=== PATIENT | male | born 1975 | race Caucasian/White ===

== ENCOUNTER 2017-04-24 11:22 | Emergency (ER) | payer OTHER ==
[~2017-04-24] VITALS: Ht 185.4 cm; Wt 111.1 kg
[~2017-04-24 11:22] MED LIST: ALBU90OI; ALBU90OI INH; CEPH500 PO; CIPR500 PO; CRUTCH3 USE; CYCL10 PO; DIAZ5 PO; DOXY100 PO; FAMO20 PO; GUAPSEER PO; HYDACE5 PO; HYDGUAL120 PO; IBUP200 PO; IBUP600 PO; LANS1COM10 PO; LORA1 PO; METR500 PO; ONDA8 PO; ONDA8ODT MM; OXYACE5T PO; PROM25 PO; Prilosec20 MG PO; RXALBOI INH; RXCODGUASY PO; RXHYDACE PO; SUCR1 PO; SULTRIDS PO
[2017-04-24 13:02] LABS: Influenza A Negative (NEGATIVE); Influenza B Negative (NEGATIVE)
[2017-04-24] MEDS ORDERED: BENZ100A PO (13:32)
[2017-04-24] MEDS ORDERED: Mucinex600 MG PO (13:32)
[2017-04-24] MEDS ORDERED: ALBU90OI INH (13:32)
[2017-04-24] MEDS ORDERED: Pseudoephedrine30 MG PO (13:32)
[2018-01-04] MEDS ORDERED: Ultram50 MG PO (08:46)
[2018-01-04] MEDS ORDERED: Voltaren100 GM TOP (08:46)
== END 2017-04-24 13:24 | disposition home or self-care (01) ==
LOC: ER 11:22
PROVIDERS: Physician Assistant
DX: J40 Bronchitis, not specified as acute or chronic (principal); B34.9 Viral infection, unspecified; F17.200 Nicotine dependence, unspecified, uncomplicated; Z79.899 Other long term (current) drug therapy
CPT/HCPCS: 87804; 99283

== ENCOUNTER 2018-10-31 08:33 | Emergency (ER) | payer OTHER ==
[~2018-10-31] VITALS: Ht 185.4 cm; Wt 108.9 kg
[~2018-10-31 08:33] MED LIST changes: +BENZ100A PO; +Mucinex600 MG PO; +Pseudoephedrine30 MG PO; +Ultram50 MG PO; +Voltaren100 GM TOP
[2018-10-31] MEDS ORDERED: NAPR550 PO (10:21)
== END 2018-10-31 10:34 | disposition home or self-care (01) ==
LOC: ER 08:33
DX: S00.83XA Contusion of other part of head, initial encounter (principal); Y04.8XXA Assault by other bodily force, initial encounter; F17.210 Nicotine dependence, cigarettes, uncomplicated
CPT/HCPCS: 70486; 99283-25

== ENCOUNTER 2019-12-19 08:11 | Emergency (ER) | payer OTHER ==
[~2019-12-19] VITALS: Ht 185.4 cm; Wt 115.7 kg
[~2019-12-19 08:11] MED LIST changes: +NAPR550 PO
== END 2019-12-19 10:40 | disposition home or self-care (01) ==
LOC: ER 08:11
DX: S63.615A Unspecified sprain of left ring finger, initial encounter (principal); F17.200 Nicotine dependence, unspecified, uncomplicated; X50.1XXA Overexertion from prolonged static or awkward postures, initial encounter
CPT/HCPCS: 29130; 73140; 99283-25

== ENCOUNTER 2020-02-29 08:07 | Emergency (ER) | payer OTHER ==
[~2020-02-29] VITALS: Ht 185.4 cm; Wt 113.4 kg
== END 2020-02-29 08:32 | disposition home or self-care (01) ==
LOC: ER 08:07
DX: M25.561 Pain in right knee (principal); F17.200 Nicotine dependence, unspecified, uncomplicated
CPT/HCPCS: 99283

== ENCOUNTER 2020-12-10 15:36 | Emergency (ER) | payer OTHER ==
[~2020-12-10] VITALS: Ht 185.4 cm; Wt 113.4 kg
[2020-12-10 16:56] LABS: BASOPHILS ABSOLUTE AUTO 0.05 K/mm3 (0.00-0.23); BASOPHILS PERCENT AUTO 1 % (0-2); EOSINOPHILS ABSOLUTE AUTO 0.25 K/mm3 (0.00-0.68); EOSINOPHILS PERCENT AUTO 3 % (0-6); Hematocrit 51.6 % (37.0-53.0); Hemoglobin 17.6 g/dL (13.5-17.5); IMMATURE GRAN ABSOLUTE AUTO 0.02 K/mm3 (0.00-0.10); IMMATURE GRAN PERCENT AUTO 0 % (0-1); LYMPHOCYTES ABSOLUTE AUTO 2.84 K/mm3 (0.84-5.20); LYMPHOCYTES PERCENT AUTO 30 % (21-46); MONOCYTES ABSOLUTE AUTO 0.67 K/mm3 (0.16-1.47); MONOCYTES PERCENT AUTO 7 % (4-13); Mean Corpuscular HGB 31.7 pg (26.0-34.0); Mean Corpuscular HGB Conc 34.1 g/dL (31.5-36.5); Mean Corpuscular Volume 93 fL (80-100); Mean Platelet Volume 10.3 fL (9.1-12.4); NEUTROPHILS PERCENT AUTO 59 % (41-73); Platelet Count 284 K/mm3 (150-400); RDW Coefficient Variation 13.2 % (11.7-14.2); RDW Standard Deviation 44.8 fL (35.1-46.3); Red Blood Cell Count 5.56 M/mm3 (4.30-5.90); White Blood Cell Count 9.33 K/mm3 (4.00-11.30)
[2020-12-10 17:25] LABS: Alanine Aminotransfer (ALT/SGP 22 U/L (12-78); Albumin, Blood 3.3 g/dL (3.4-5.0); Albumin/Globulin Ratio 0.6 (0.8-1.8); Alk Phos 72 U/L (50-136); Anion Gap 8 mmol/L (6-16); Aspartate Aminotrans (AST/SGOT 30 U/L (12-37); Bilirubin, Total 0.7 mg/dL (0.1-1.0); Blood Urea Nitrogen 9 mg/dL (8-24); Bun/Creatinine Ratio 10.4 (12.0-20.0); CO2, Blood 21 mmol/L (21-32); Chloride, Blood 108 mmol/L (98-108); Creatinine, Blood 0.86 mg/dL (0.60-1.20); Globulin, Blood 5.9 g/dL (2.2-4.0); Glomerular Filtration Rate >60 (60-); Glucose, Blood 97 mg/dL (70-99); Potassium, Blood 3.8 mmol/L (3.5-5.5); Sodium, Blood 137 mmol/L (136-145); Total Protein, Blood 9.2 g/dL (6.4-8.2)
[2020-12-10] MEDS ORDERED: TRIDERM28.4 GM TOP (18:10)
== END 2020-12-10 18:22 | disposition home or self-care (01) ==
LOC: ER 15:36
PROVIDERS: Physician Assistant
DX: M79.604 Pain in right leg (principal); M79.605 Pain in left leg; F17.200 Nicotine dependence, unspecified, uncomplicated
CPT/HCPCS: 36415; 80053; 85025; 99284

== ENCOUNTER 2021-01-08 13:26 | Emergency (ER) | payer OTHER ==
[~2021-01-08] VITALS: Ht 185.4 cm; Wt 111.1 kg
[~2021-01-08 13:26] MED LIST changes: +TRIDERM28.4 GM TOP
[2021-01-08 14:12] LABS: BASOPHILS ABSOLUTE AUTO 0.06 K/mm3 (0.00-0.23); BASOPHILS PERCENT AUTO 1 % (0-2); EOSINOPHILS ABSOLUTE AUTO 0.18 K/mm3 (0.00-0.68); EOSINOPHILS PERCENT AUTO 2 % (0-6); Hematocrit 48.2 % (37.0-53.0); Hemoglobin 16.5 g/dL (13.5-17.5); IMMATURE GRAN ABSOLUTE AUTO 0.04 K/mm3 (0.00-0.10); IMMATURE GRAN PERCENT AUTO 1 % (0-1); LYMPHOCYTES ABSOLUTE AUTO 2.24 K/mm3 (0.84-5.20); LYMPHOCYTES PERCENT AUTO 29 % (21-46); MONOCYTES ABSOLUTE AUTO 0.55 K/mm3 (0.16-1.47); MONOCYTES PERCENT AUTO 7 % (4-13); Mean Corpuscular HGB 31.9 pg (26.0-34.0); Mean Corpuscular HGB Conc 34.2 g/dL (31.5-36.5); Mean Corpuscular Volume 93 fL (80-100); Mean Platelet Volume 10.7 fL (9.1-12.4); NEUTROPHILS ABSOLUTE AUTO 4.72 K/mm3 (1.96-9.15); NEUTROPHILS PERCENT AUTO 61 % (41-73); Platelet Count 258 K/mm3 (150-400); RDW Coefficient Variation 13.3 % (11.7-14.2); RDW Standard Deviation 45.8 fL (35.1-46.3); Red Blood Cell Count 5.17 M/mm3 (4.30-5.90); White Blood Cell Count 7.79 K/mm3 (4.00-11.30)
[2021-01-08 14:32] LABS: Alanine Aminotransfer (ALT/SGP 21 U/L (12-78); Albumin, Blood 3.1 g/dL (3.4-5.0); Albumin/Globulin Ratio 0.5 (0.8-1.8); Alk Phos 74 U/L (50-136); Anion Gap 5 mmol/L (6-16); Aspartate Aminotrans (AST/SGOT 29 U/L (12-37); Bilirubin, Total 0.5 mg/dL (0.1-1.0); Blood Urea Nitrogen 9 mg/dL (8-24); Bun/Creatinine Ratio 9.8 (12.0-20.0); CO2, Blood 25 mmol/L (21-32); Calcium, Blood 8.7 mg/dL (8.5-10.1); Chloride, Blood 108 mmol/L (98-108); Creatinine, Blood 0.92 mg/dL (0.60-1.20); Globulin, Blood 5.7 g/dL (2.2-4.0); Glomerular Filtration Rate >60 (60-); Glucose, Blood 87 mg/dL (70-99); Potassium, Blood 4.3 mmol/L (3.5-5.5); Sodium, Blood 138 mmol/L (136-145); Total Protein, Blood 8.8 g/dL (6.4-8.2)
== END 2021-01-08 15:29 | disposition home or self-care (01) ==
LOC: ER 13:26
PROVIDERS: Physician Assistant
DX: R20.2 Paresthesia of skin (principal); M79.672 Pain in left foot; M79.671 Pain in right foot; F17.200 Nicotine dependence, unspecified, uncomplicated
CPT/HCPCS: 36415; 80053; 83036; 85025; 99283

== ENCOUNTER 2021-05-09 08:07 | Emergency (ER) | payer OTHER ==
[~2021-05-09] VITALS: Ht 185.4 cm; Wt 113.4 kg
[2021-05-09 09:46] LABS: BASOPHILS ABSOLUTE AUTO 0.06 K/mm3 (0.00-0.23); BASOPHILS PERCENT AUTO 1 % (0-2); EOSINOPHILS PERCENT AUTO 1 % (0-6); Hematocrit 50.8 % (37.0-53.0); Hemoglobin 17.4 g/dL (13.5-17.5); IMMATURE GRAN ABSOLUTE AUTO 0.02 K/mm3 (0.00-0.10); IMMATURE GRAN PERCENT AUTO 0 % (0-1); LYMPHOCYTES ABSOLUTE AUTO 1.77 K/mm3 (0.84-5.20); LYMPHOCYTES PERCENT AUTO 23 % (21-46); MONOCYTES PERCENT AUTO 8 % (4-13); Mean Corpuscular HGB 32.2 pg (26.0-34.0); Mean Corpuscular HGB Conc 34.3 g/dL (31.5-36.5); Mean Corpuscular Volume 94 fL (80-100); Mean Platelet Volume 10.5 fL (9.1-12.4); NEUTROPHILS ABSOLUTE AUTO 5.14 K/mm3 (1.96-9.15); NEUTROPHILS PERCENT AUTO 67 % (41-73); Platelet Count 294 K/mm3 (150-400); RDW Coefficient Variation 12.1 % (11.7-14.2); RDW Standard Deviation 42.3 fL (35.1-46.3); White Blood Cell Count 7.69 K/mm3 (4.00-11.30)
[2021-05-09 10:08] LABS: Alanine Aminotransfer (ALT/SGP 26 U/L (12-78); Albumin, Blood 3.3 g/dL (3.4-5.0); Albumin/Globulin Ratio 0.6 (0.8-1.8); Alk Phos 50 U/L (50-136); Anion Gap 7 mmol/L (6-16); Aspartate Aminotrans (AST/SGOT 30 U/L (12-37); Bilirubin, Total 2.2 mg/dL (0.1-1.0); Blood Urea Nitrogen 8 mg/dL (8-24); Bun/Creatinine Ratio 9.1 (12.0-20.0); CO2, Blood 23 mmol/L (21-32); Calcium, Blood 9.3 mg/dL (8.5-10.1); Chloride, Blood 107 mmol/L (98-108); Creatinine, Blood 0.88 mg/dL (0.60-1.20); Globulin, Blood 5.4 g/dL (2.2-4.0); Glomerular Filtration Rate >60 (60-); Glucose, Blood 112 mg/dL (70-99); Potassium, Blood 4.3 mmol/L (3.5-5.5); Sodium, Blood 137 mmol/L (136-145); Total Protein, Blood 8.7 g/dL (6.4-8.2)
[2021-05-09 10:41] LABS: Source, Urine Clean Catch
[2021-05-09 10:45] LABS: Appearance, Urine Clear (Clear); Bilirubin, Urine Neg (Neg); Blood, Urine Neg (Neg); Color, Urine Yellow (P-Yellow); Glucose Qualitative, Urine Neg (Neg); Ketones, Urine Neg (Neg); Leukocyte Esterase, Urine Neg (Neg); Nitrite, Urine Neg (Neg); Protein, Urine Neg (Neg); Urobilinogen, Urine NORM (Normal)
[2021-05-09] MEDS ORDERED: CYCL10 PO (11:58)
[2021-05-09] MEDS ORDERED: LIDO700A20 TOP (11:58)
== END 2021-05-09 12:00 | disposition home or self-care (01) ==
LOC: ER 08:07
PROVIDERS: Physician Assistant
DX: R10.9 Unspecified abdominal pain (principal); F17.200 Nicotine dependence, unspecified, uncomplicated
CPT/HCPCS: 36415; 74176; 80053; 81003; 83690; 85025; 96374; 96375; 99284-25; J1885; J2405

== ENCOUNTER 2021-07-30 23:46 | Emergency (ER) | payer OTHER ==
[~2021-07-30] VITALS: Ht 185.4 cm; Wt 108.9 kg
[~2021-07-30 23:46] MED LIST changes: +LIDO700A20 TOP
[2021-07-31 00:25] LABS: BASOPHILS ABSOLUTE AUTO 0.08 K/mm3 (0.00-0.23); BASOPHILS PERCENT AUTO 1 % (0-2); EOSINOPHILS ABSOLUTE AUTO 0.18 K/mm3 (0.00-0.68); EOSINOPHILS PERCENT AUTO 2 % (0-6); Hematocrit 46.3 % (37.0-53.0); Hemoglobin 15.9 g/dL (13.5-17.5); IMMATURE GRAN ABSOLUTE AUTO 0.03 K/mm3 (0.00-0.10); IMMATURE GRAN PERCENT AUTO 0 % (0-1); LYMPHOCYTES ABSOLUTE AUTO 1.97 K/mm3 (0.84-5.20); LYMPHOCYTES PERCENT AUTO 18 % (21-46); MONOCYTES ABSOLUTE AUTO 0.71 K/mm3 (0.16-1.47); MONOCYTES PERCENT AUTO 6 % (4-13); Mean Corpuscular HGB 31.7 pg (26.0-34.0); Mean Corpuscular HGB Conc 34.3 g/dL (31.5-36.5); Mean Corpuscular Volume 92 fL (80-100); Mean Platelet Volume 10.6 fL (9.1-12.4); NEUTROPHILS ABSOLUTE AUTO 8.19 K/mm3 (1.96-9.15); NEUTROPHILS PERCENT AUTO 73 % (41-73); Platelet Count 292 K/mm3 (150-400); RDW Coefficient Variation 12.5 % (11.7-14.2); RDW Standard Deviation 42.7 fL (35.1-46.3); Red Blood Cell Count 5.02 M/mm3 (4.30-5.90); White Blood Cell Count 11.16 K/mm3 (4.00-11.30)
[2021-07-31 00:43] LABS: Albumin, Blood 3.4 g/dL (3.4-5.0); Albumin/Globulin Ratio 0.7 (0.8-1.8); Bun/Creatinine Ratio 14.5 (12.0-20.0); Calcium, Blood 8.9 mg/dL (8.5-10.1); Creatinine, Blood 0.96 mg/dL (0.60-1.20); Globulin, Blood 5.2 g/dL (2.2-4.0); Potassium, Blood 3.8 mmol/L (3.5-5.5); Total Protein, Blood 8.6 g/dL (6.4-8.2)
[2021-07-31 00:57] LABS: Source, Urine Clean Catch
[2021-07-31 00:59] LABS: Bilirubin, Urine Neg (Neg); Blood, Urine Neg (Neg); Glucose Qualitative, Urine Neg (Neg); Ketones, Urine Neg (Neg); Leukocyte Esterase, Urine Neg (Neg); Nitrite, Urine Neg (Neg); Protein, Urine 1+ (Neg); Urobilinogen, Urine NORM (Normal)
[2021-07-31 01:37] LABS: Appearance, Urine Clear (Clear); Color, Urine Yellow (P-Yellow)
== END 2021-07-31 05:01 | disposition home or self-care (01) ==
LOC: ER 23:46
PROVIDERS: Student in an Organized Health Care Education/Training Program
DX: R10.9 Unspecified abdominal pain (principal); F17.200 Nicotine dependence, unspecified, uncomplicated; Z79.899 Other long term (current) drug therapy
CPT/HCPCS: 36415; 74176; 80053; 83690; 85025; 96374; 96375; 99284-25; J1885; J2270

== ENCOUNTER → 2021-12-17 | Outpatient (CLI) | payer OTHER ==
[~2021-12-17] MED LIST changes: +BUDESONIDE-FO10.2 G3; +METO50ER PO; +Ventolin/Prove6.7 GM INH
== END | disposition home or self-care (01) ==
LOC: LAB 17:48 → LAB SHORT 17:48
DX: L98.9 Disorder of the skin and subcutaneous tissue, unspecified (principal)
CPT/HCPCS: 87070; 87205

== ENCOUNTER → 2022-03-31 | Outpatient (CLI) | payer OTHER | END | disposition home or self-care (01) | LOC: LAB 08:00 → LAB SHORT 08:00 → LAB FUT 03-27 17:00 | DX: L30.9 Dermatitis, unspecified (principal) | CPT/HCPCS: 81050 ==

== ENCOUNTER 2022-04-23 08:58 | Emergency (ER) | payer OTHER ==
[~2022-04-23] VITALS: Ht 185.4 cm; Wt 104.3 kg
[2022-04-23] MEDS ORDERED: Bactrim Ds Tab1 EACH PO (09:50)
== END 2022-04-23 09:50 | disposition home or self-care (01) ==
LOC: ER 08:58
DX: L02.415 Cutaneous abscess of right lower limb (principal); L02.416 Cutaneous abscess of left lower limb; F17.200 Nicotine dependence, unspecified, uncomplicated; J44.9 Chronic obstructive pulmonary disease, unspecified
CPT/HCPCS: 99282

== ENCOUNTER 2022-05-08 20:13 | Emergency (ER) | payer OTHER ==
[~2022-05-08] VITALS: Ht 185.4 cm; Wt 104.3 kg
[~2022-05-08 20:13] MED LIST changes: +Bactrim Ds Tab1 EACH PO
[2022-05-08 21:47] LABS: BASOPHILS ABSOLUTE AUTO 0.07 K/mm3 (0.00-0.23); BASOPHILS PERCENT AUTO 1 % (0-2); EOSINOPHILS ABSOLUTE AUTO 0.26 K/mm3 (0.00-0.68); EOSINOPHILS PERCENT AUTO 3 % (0-6); Hematocrit 47.8 % (37.0-53.0); Hemoglobin 16.4 g/dL (13.5-17.5); IMMATURE GRAN ABSOLUTE AUTO 0.02 K/mm3 (0.00-0.10); IMMATURE GRAN PERCENT AUTO 0 % (0-1); LYMPHOCYTES ABSOLUTE AUTO 1.69 K/mm3 (0.84-5.20); LYMPHOCYTES PERCENT AUTO 19 % (21-46); MONOCYTES ABSOLUTE AUTO 0.65 K/mm3 (0.16-1.47); MONOCYTES PERCENT AUTO 7 % (4-13); Mean Corpuscular HGB 32.4 pg (26.0-34.0); Mean Corpuscular HGB Conc 34.3 g/dL (31.5-36.5); Mean Corpuscular Volume 95 fL (80-100); Mean Platelet Volume 10.7 fL (9.1-12.4); NEUTROPHILS ABSOLUTE AUTO 6.09 K/mm3 (1.96-9.15); NEUTROPHILS PERCENT AUTO 69 % (41-73); Platelet Count 240 K/mm3 (150-400); RDW Standard Deviation 45.5 fL (35.1-46.3); Red Blood Cell Count 5.06 M/mm3 (4.30-5.90); White Blood Cell Count 8.78 K/mm3 (4.00-11.30)
[2022-05-08 22:11] LABS: Albumin, Blood 2.8 g/dL (3.4-5.0); Albumin/Globulin Ratio 0.6 (0.8-1.8); Bilirubin, Total 0.4 mg/dL (0.1-1.0); Bun/Creatinine Ratio 13.4 (12.0-20.0); Calcium, Blood 8.6 mg/dL (8.5-10.1); Creatinine, Blood 1.27 mg/dL (0.60-1.20); Globulin, Blood 4.4 g/dL (2.2-4.0); Potassium, Blood 4.1 mmol/L (3.5-5.5); Total Protein, Blood 7.2 g/dL (6.4-8.2)
[2022-05-08] MEDS ORDERED: IBUP800 PO (22:35)
== END 2022-05-08 22:50 | disposition home or self-care (01) ==
LOC: ER 20:13
PROVIDERS: Student in an Organized Health Care Education/Training Program
DX: M79.605 Pain in left leg (principal); M79.604 Pain in right leg; R60.0 Localized edema; J44.9 Chronic obstructive pulmonary disease, unspecified; F17.200 Nicotine dependence, unspecified, uncomplicated; Z79.899 Other long term (current) drug therapy
CPT/HCPCS: 36415; 80053; 85025; 96374; 99283-25; J3010

== ENCOUNTER 2022-07-13 10:00 | Emergency (ER) | payer OTHER ==
[~2022-07-13] VITALS: Ht 185.4 cm; Wt 97.5 kg
[~2022-07-13 10:00] MED LIST changes: +IBUP800 PO
[2022-07-13 10:13] VITALS: BP 155/85
[2022-07-13] MEDS ORDERED: ALBU90OI INH (10:16)
[2022-07-13] MEDS ORDERED: Robaxin750 MG PO (10:33)
[2022-07-13] MEDS ORDERED: IBUP800 PO (10:33)
== END 2022-07-13 10:52 | disposition home or self-care (01) ==
LOC: ER 10:00
DX: M54.41 Lumbago with sciatica, right side (principal); J44.9 Chronic obstructive pulmonary disease, unspecified; F17.210 Nicotine dependence, cigarettes, uncomplicated; Z79.899 Other long term (current) drug therapy
CPT/HCPCS: 96372; 99283-25; A9270; J1885

== ENCOUNTER 2022-11-16 00:41 | Emergency (ER) | payer OTHER ==
[~2022-11-16] VITALS: Ht 185.4 cm; Wt 99.8 kg
[~2022-11-16 00:41] MED LIST changes: +Robaxin750 MG PO
[2022-11-16 01:19] VITALS: BP 93/65
[2022-11-16] MEDS ORDERED: CEPHALEXIN500 MG PO (16:53)
== END 2022-11-16 02:31 | disposition left against medical advice (07) ==
LOC: ER 00:41
DX: Z53.21 Procedure and treatment not carried out due to patient leaving prior to being seen by health care provider (principal)
CPT/HCPCS: 73130

== ENCOUNTER 2022-11-16 15:07 | Emergency (ER) | payer OTHER ==
[~2022-11-16] VITALS: Ht 185.4 cm; Wt 104.3 kg
[2022-11-16 15:15] VITALS: BP 102/87
[2022-11-16] MEDS ORDERED: CEPHALEXIN500 MG PO (16:53)
== END 2022-11-16 17:14 | disposition home or self-care (01) ==
LOC: ER 15:07
DX: S62.616B Displaced fracture of proximal phalanx of right little finger, initial encounter for open fracture (principal); F17.210 Nicotine dependence, cigarettes, uncomplicated; J44.9 Chronic obstructive pulmonary disease, unspecified; W23.0XXA Caught, crushed, jammed, or pinched between moving objects, initial encounter; Z79.899 Other long term (current) drug therapy
CPT/HCPCS: 12001; 12002; 99283-25

== ENCOUNTER 2022-11-25 12:46 | Day surgery (SDC) | payer OTHER ==
[2022-11-25] VITALS (20 sets, daily range): BP systolic 114–157; BP diastolic 62–100
[~2022-11-25] VITALS: Ht 177.8 cm; Wt 97.4 kg
[~2022-11-25 12:46] MED LIST changes: +CEPHALEXIN500 MG PO
[2022-11-25] MEDS ORDERED: IBUP400 PO (13:29)
[2022-11-25] MEDS ORDERED: SYMBICORT 80-10.2 GM IH (13:37)
[2022-11-25] MEDS ORDERED: Ventolin5 MG/1 ML INH (13:37)
--- NOTE | 2022-11-25 14:39 | NUR ---
1438 TIME OUT COMPLETE FOR BLOCK BY DR ALLISON. 1438: TIME OUT COMPLETED 1440: 2MG VERSED IVP ADMINISTERED BY 1444: PROCEDURE START 1446: MEDICATION INJECTED 1450: PROCEDURE COMPLETED PT A/O, TOLERATED PROCEDURE WELL, VSS. PULSE OX ON THROUGHOUT PROCEDURE, DENIES PAIN AT THIS TIME.
--- NOTE | 2022-11-25 16:05 | NUR ---
11/25/22 Armida Eric PRIOR TO ARRIVING IN THE OR, PATIENT RECEIVED A RIGHT INTRACLAVICULAR BLOCK IN THE PREOP SETTING PERFORMED BY AT BEDSIDE.
--- NOTE | 2022-11-25 18:54 | NUR ---
DISCHARGE NOTE Discharge instructions reviewed with patient. Patient verbalizes understanding. Copy given to patient to take home. Dressing remains C/D/I, orthoglass splint in place, sling given to patient. Vital signs now stable. Pt educated on importance of smoking cessation follow up with PCP regarding abnormal EKG Pt assisted with dressing, belongings returned, pt assisted into wheelchair. Cap refill in R fingers 2 secs, pink, warm to touch. Pt discharged via wheelchair to private ride home with S/O.
== END 2022-11-25 22:59 | disposition home or self-care (01) ==
LOC: ORSCMMR 12:46 → ORD 14:00 → ORSCMMR 14:00
PROVIDERS: Orthopaedic Surgery
PROC: 0PST04Z Reposition Right Finger Phalanx with Internal Fixation Device, Open Approach (ICD-10-PCS; principal; 2022-11-25 14:00)
DX: S62.616A Displaced fracture of proximal phalanx of right little finger, initial encounter for closed fracture (principal); X58.XXXA Exposure to other specified factors, initial encounter; Y93.9 Activity, unspecified; S61.216A Laceration without foreign body of right little finger without damage to nail, initial encounter; J44.9 Chronic obstructive pulmonary disease, unspecified; F17.210 Nicotine dependence, cigarettes, uncomplicated; B19.20 Unspecified viral hepatitis C without hepatic coma; Z79.899 Other long term (current) drug therapy
CPT/HCPCS: 93005; 93010; J0690; J2250; J2704; J3010; J7120

== ENCOUNTER → 2022-12-19 | Outpatient (CLI) | payer OTHER ==
[~2022-12-19] MED LIST changes: +IBUP400 PO; +SYMBICORT 80-10.2 GM IH; +Ventolin5 MG/1 ML INH
[2022-12-19 16:51] LABS: BASOPHILS ABSOLUTE AUTO 0.11 K/mm3 (0.00-0.23); BASOPHILS PERCENT AUTO 1 % (0-2); EOSINOPHILS ABSOLUTE AUTO 0.44 K/mm3 (0.00-0.68); EOSINOPHILS PERCENT AUTO 5 % (0-6); Hematocrit 47.9 % (37.0-53.0); Hemoglobin 16.2 g/dL (13.5-17.5); IMMATURE GRAN ABSOLUTE AUTO 0.02 K/mm3 (0.00-0.10); IMMATURE GRAN PERCENT AUTO 0 % (0-1); LYMPHOCYTES ABSOLUTE AUTO 2.73 K/mm3 (0.84-5.20); LYMPHOCYTES PERCENT AUTO 32 % (21-46); MONOCYTES PERCENT AUTO 8 % (4-13); Mean Corpuscular HGB 31.5 pg (26.0-34.0); Mean Corpuscular HGB Conc 33.8 g/dL (31.5-36.5); Mean Corpuscular Volume 93 fL (80-100); Mean Platelet Volume 11.3 fL (9.1-12.4); NEUTROPHILS ABSOLUTE AUTO 4.55 K/mm3 (1.96-9.15); NEUTROPHILS PERCENT AUTO 53 % (41-73); Platelet Count 324 K/mm3 (150-400); RDW Coefficient Variation 12.9 % (11.7-14.2); RDW Standard Deviation 44.4 fL (35.1-46.3); Red Blood Cell Count 5.14 M/mm3 (4.30-5.90); White Blood Cell Count 8.55 K/mm3 (4.00-11.30)
[2022-12-19 17:39] LABS: Uric Acid, Blood 5.4 mg/dL (3.5-7.2)
[2022-12-19 18:59] LABS: Albumin, Blood 3.3 g/dL (3.4-5.0); Albumin/Globulin Ratio 0.6 (0.8-1.8); Bilirubin, Total 0.5 mg/dL (0.1-1.0); Bun/Creatinine Ratio 21.9 (12.0-20.0); Calcium, Blood 9.4 mg/dL (8.5-10.1); Creatinine, Blood 1.14 mg/dL (0.60-1.20); Globulin, Blood 5.8 g/dL (2.2-4.0); Potassium, Blood 4.5 mmol/L (3.5-5.5); Total Protein, Blood 9.1 g/dL (6.4-8.2)
== END ==
LOC: LAB 15:16 → LAB SHORT 15:16
PROVIDERS: Nurse Practitioner Family
DX: M10.9 Gout, unspecified (principal)
CPT/HCPCS: 80053; 84550; 85025; 87070; 87075; 87077; 87147; 87186; 87205

== ENCOUNTER 2023-01-21 20:32 | Emergency (ER) | payer OTHER ==
[~2023-01-21] VITALS: Ht 185.4 cm; Wt 108.9 kg
[2023-01-21 21:03] VITALS: BP 122/73
== END 2023-01-21 22:01 | disposition home or self-care (01) ==
LOC: ER 20:32
DX: L02.612 Cutaneous abscess of left foot (principal); R21 Rash and other nonspecific skin eruption; Z79.899 Other long term (current) drug therapy; J44.9 Chronic obstructive pulmonary disease, unspecified; F17.210 Nicotine dependence, cigarettes, uncomplicated
CPT/HCPCS: 99283

== ENCOUNTER 2023-01-25 22:49 | Emergency (ER) | payer OTHER ==
[~2023-01-25] VITALS: Ht 185.4 cm; Wt 104.3 kg
[2023-01-25 22:54] VITALS: BP 135/94
[2023-01-26] MEDS ORDERED: Prednisone20 MG PO (21:40)
[2023-01-26] MEDS ORDERED: Indomethacin50 MG PO (21:40)
== END 2023-01-25 23:28 | disposition home or self-care (01) ==
LOC: ER 22:49
DX: M25.571 Pain in right ankle and joints of right foot (principal); J44.9 Chronic obstructive pulmonary disease, unspecified; F17.210 Nicotine dependence, cigarettes, uncomplicated; Z79.899 Other long term (current) drug therapy
CPT/HCPCS: 96372; 99283-25; J1885

== ENCOUNTER 2023-01-26 21:05 | Emergency (ER) | payer OTHER ==
[~2023-01-26] VITALS: Ht 185.4 cm; Wt 105.7 kg
[2023-01-26 21:19] VITALS: BP 127/80
[2023-01-26] MEDS ORDERED: Prednisone20 MG PO (21:40)
[2023-01-26] MEDS ORDERED: Indomethacin50 MG PO (21:40)
== END 2023-01-26 21:50 | disposition home or self-care (01) ==
LOC: ER 21:05
DX: M10.9 Gout, unspecified (principal); F17.210 Nicotine dependence, cigarettes, uncomplicated; Z79.51 Long term (current) use of inhaled steroids; Z79.52 Long term (current) use of systemic steroids; Z79.899 Other long term (current) drug therapy
CPT/HCPCS: 99282; A9270; J7512

== ENCOUNTER → 2023-01-28 | Outpatient (CLI) | payer OTHER ==
[~2023-01-28] MED LIST changes: +Indomethacin50 MG PO; +Prednisone20 MG PO
[2023-01-28 13:17] LABS: BASOPHILS ABSOLUTE AUTO 0.02 K/mm3 (0.00-0.23); BASOPHILS PERCENT AUTO 0 % (0-2); EOSINOPHILS PERCENT AUTO 0 % (0-6); Hematocrit 42.8 % (37.0-53.0); Hemoglobin 14.5 g/dL (13.5-17.5); IMMATURE GRAN ABSOLUTE AUTO 0.05 K/mm3 (0.00-0.10); IMMATURE GRAN PERCENT AUTO 0 % (0-1); LYMPHOCYTES ABSOLUTE AUTO 0.97 K/mm3 (0.84-5.20); LYMPHOCYTES PERCENT AUTO 7 % (21-46); MONOCYTES ABSOLUTE AUTO 0.49 K/mm3 (0.16-1.47); MONOCYTES PERCENT AUTO 4 % (4-13); Mean Corpuscular HGB 31.7 pg (26.0-34.0); Mean Corpuscular HGB Conc 33.9 g/dL (31.5-36.5); Mean Corpuscular Volume 93 fL (80-100); Mean Platelet Volume 11.2 fL (9.1-12.4); NEUTROPHILS ABSOLUTE AUTO 12.42 K/mm3 (1.96-9.15); NEUTROPHILS PERCENT AUTO 89 % (41-73); Platelet Count 343 K/mm3 (150-400); RDW Coefficient Variation 13.3 % (11.7-14.2); RDW Standard Deviation 45.6 fL (35.1-46.3); Red Blood Cell Count 4.58 M/mm3 (4.30-5.90); White Blood Cell Count 13.95 K/mm3 (4.00-11.30)
[2023-01-28 13:27] LABS: Albumin, Blood 3.3 g/dL (3.4-5.0); Albumin/Globulin Ratio 0.6 (0.8-1.8); Bilirubin, Total 0.7 mg/dL (0.1-1.0); Bun/Creatinine Ratio 19.5 (12.0-20.0); Calcium, Blood 9.1 mg/dL (8.5-10.1); Creatinine, Blood 1.18 mg/dL (0.60-1.20); Globulin, Blood 5.1 g/dL (2.2-4.0); Potassium, Blood 4.3 mmol/L (3.5-5.5); Total Protein, Blood 8.4 g/dL (6.4-8.2); Uric Acid, Blood 5.2 mg/dL (3.5-7.2)
[2023-01-30 01:07] LABS: HIV AB/P24 AG SCREEN Non Reactive (Non Reactive)
[2023-02-02 08:08] LABS: HBSAG SCREEN Negative (Negative); HCV AB Reactive (Non Reactive); HEP A AB, IGM Negative (Negative); HEP B CORE AB, IGM Negative (Negative); HEPATITIS C QUANTITATION HCV Not Detected IU/mL (.)
== END | disposition home or self-care (01) ==
LOC: LAB 09:23 → LAB SHORT 09:23
PROVIDERS: Nurse Practitioner Family
DX: M10.9 Gout, unspecified (principal); L03.115 Cellulitis of right lower limb; B99.9 Unspecified infectious disease
CPT/HCPCS: 80053; 80074; 84550; 85025; 87389

== ENCOUNTER 2023-02-04 13:27 | Emergency (ER) | payer OTHER ==
[~2023-02-04] VITALS: Ht 185.4 cm; Wt 99.8 kg
[2023-02-04 14:08] LABS: BASOPHILS ABSOLUTE AUTO 0.05 K/mm3 (0.00-0.23); BASOPHILS PERCENT AUTO 1 % (0-2); EOSINOPHILS PERCENT AUTO 3 % (0-6); Hematocrit 41.2 % (37.0-53.0); Hemoglobin 13.7 g/dL (13.5-17.5); IMMATURE GRAN ABSOLUTE AUTO 0.03 K/mm3 (0.00-0.10); IMMATURE GRAN PERCENT AUTO 0 % (0-1); LYMPHOCYTES ABSOLUTE AUTO 2.08 K/mm3 (0.84-5.20); LYMPHOCYTES PERCENT AUTO 24 % (21-46); MONOCYTES ABSOLUTE AUTO 0.82 K/mm3 (0.16-1.47); MONOCYTES PERCENT AUTO 9 % (4-13); Mean Corpuscular HGB 31.4 pg (26.0-34.0); Mean Corpuscular HGB Conc 33.3 g/dL (31.5-36.5); Mean Corpuscular Volume 95 fL (80-100); Mean Platelet Volume 10.4 fL (9.1-12.4); NEUTROPHILS ABSOLUTE AUTO 5.57 K/mm3 (1.96-9.15); NEUTROPHILS PERCENT AUTO 63 % (41-73); Platelet Count 325 K/mm3 (150-400); RDW Coefficient Variation 13.2 % (11.7-14.2); RDW Standard Deviation 45.9 fL (35.1-46.3); Red Blood Cell Count 4.36 M/mm3 (4.30-5.90); White Blood Cell Count 8.85 K/mm3 (4.00-11.30)
[2023-02-04 14:25] LABS: Albumin/Globulin Ratio 0.6 (0.8-1.8); Bilirubin, Total 0.5 mg/dL (0.1-1.0); Bun/Creatinine Ratio 18.7 (12.0-20.0); Calcium, Blood 8.6 mg/dL (8.5-10.1); Creatinine, Blood 0.96 mg/dL (0.60-1.20); Globulin, Blood 4.8 g/dL (2.2-4.0); Potassium, Blood 3.8 mmol/L (3.5-5.5); Total Protein, Blood 7.8 g/dL (6.4-8.2)
[2023-02-04] MEDS ORDERED: DOXY100 PO (15:18)
[2023-02-04] MEDS ORDERED: CLIN150 PO (15:18)
[2023-02-04 15:20] VITALS: BP 118/78
== END 2023-02-04 16:40 | disposition left against medical advice (07) ==
LOC: ER 13:27
PROVIDERS: Physician Assistant
DX: S91.001A Unspecified open wound, right ankle, initial encounter (principal); Z53.29 Procedure and treatment not carried out because of patient's decision for other reasons; X58.XXXA Exposure to other specified factors, initial encounter
CPT/HCPCS: 73600; 80053; 85025; 99283-25

== ENCOUNTER 2023-02-06 12:26 | Emergency (ER) | payer OTHER ==
[~2023-02-06] VITALS: Ht 185.4 cm; Wt 101.2 kg
[~2023-02-06 12:26] MED LIST changes: +CLIN150 PO
[2023-02-06 13:13] LABS: Hematocrit 41.3 % (37.0-53.0); Hemoglobin 13.9 g/dL (13.5-17.5); Mean Corpuscular HGB 31.7 pg (26.0-34.0); Mean Corpuscular HGB Conc 33.7 g/dL (31.5-36.5); Mean Corpuscular Volume 94 fL (80-100); Mean Platelet Volume 10.4 fL (9.1-12.4); Platelet Count 289 K/mm3 (150-400); RDW Coefficient Variation 13.2 % (11.7-14.2); RDW Standard Deviation 46.5 fL (35.1-46.3); Red Blood Cell Count 4.38 M/mm3 (4.30-5.90); White Blood Cell Count 4.71 K/mm3 (4.00-11.30)
[2023-02-06 13:34] LABS: BAND PERCENT MAN 1 % (0-8); BASOPHILS ABSOLUTE MAN 0.04 K/mm3 (0.00-0.23); BASOPHILS PERCENT MAN 1 % (0-2); EOSINOPHILS ABSOLUTE MAN 0.04 K/mm3 (0.00-0.68); EOSINOPHILS PERCENT MAN 1 % (0-6); LYMPHOCYTES % ATYPICAL MANUAL 2 % (0-0); LYMPHOCYTES ABSOLUTE MAN 1.97 K/mm3 (0.84-5.20); LYMPHOCYTES PERCENT MAN 40 % (21-46); MONOCYTES ABSOLUTE MAN 0.42 K/mm3 (0.16-1.47); MONOCYTES PERCENT MAN 9 % (4-13); NEUTROPHILS ABSOLUTE MAN 2.21 K/mm3 (1.96-9.15); SEG NEUTROPHILS PERCENT MAN 46 % (41-73); TOTAL CELLS COUNTED 100
[2023-02-06 13:40] LABS: Albumin, Blood 3.1 g/dL (3.4-5.0); Albumin/Globulin Ratio 0.6 (0.8-1.8); Bilirubin, Total 0.7 mg/dL (0.1-1.0); Bun/Creatinine Ratio 12.3 (12.0-20.0); Calcium, Blood 8.8 mg/dL (8.5-10.1); Creatinine, Blood 1.06 mg/dL (0.60-1.20); Globulin, Blood 4.8 g/dL (2.2-4.0); Potassium, Blood 4.2 mmol/L (3.5-5.5); Total Protein, Blood 7.9 g/dL (6.4-8.2)
[2023-02-06 15:30] VITALS: BP 128/71
== END 2023-02-06 16:29 | disposition home or self-care (01) ==
LOC: ER 12:26
PROVIDERS: Student in an Organized Health Care Education/Training Program
DX: L03.115 Cellulitis of right lower limb (principal); F17.210 Nicotine dependence, cigarettes, uncomplicated
CPT/HCPCS: 80053; 85025; 99283

== ENCOUNTER 2023-02-13 08:42 | Day surgery (SDC) | payer OTHER | END 2023-02-13 23:00 | disposition home or self-care (01) | LOC: WOUND 08:42 | DX: S91.302D Unspecified open wound, left foot, subsequent encounter (principal); S91.001D Unspecified open wound, right ankle, subsequent encounter; S00-T88 Injury, poisoning and certain other consequences of external causes; L03.115 Cellulitis of right lower limb; X58.XXXD Exposure to other specified factors, subsequent encounter | CPT/HCPCS: 73630; A9270; G0463 ==

== ENCOUNTER 2023-02-20 03:58 | Day surgery (SDC) | payer OTHER | END 2023-02-20 22:41 | disposition home or self-care (01) | LOC: WOUND 03:58 | DX: L03.115 Cellulitis of right lower limb (principal); S81.801D Unspecified open wound, right lower leg, subsequent encounter; S00-T88 Injury, poisoning and certain other consequences of external causes; I73.9 Peripheral vascular disease, unspecified | CPT/HCPCS: A9270; G0463 ==

== ENCOUNTER 2023-02-27 03:07 | Day surgery (SDC) | payer OTHER | END 2023-02-27 23:42 | disposition home or self-care (01) | LOC: WOUND 03:07 | DX: S91.312D Laceration without foreign body, left foot, subsequent encounter (principal); S91.011D Laceration without foreign body, right ankle, subsequent encounter; L03.115 Cellulitis of right lower limb; S00-T88 Injury, poisoning and certain other consequences of external causes; S81.801D Unspecified open wound, right lower leg, subsequent encounter; I73.9 Peripheral vascular disease, unspecified | CPT/HCPCS: 93922; 99406; G0463 ==

== ENCOUNTER 2023-03-04 05:12 | Day surgery (SDC) | payer OTHER | END 2023-03-04 22:48 | disposition home or self-care (01) | LOC: WOUND 05:12 | DX: L03.115 Cellulitis of right lower limb (principal); S81.801D Unspecified open wound, right lower leg, subsequent encounter; S00-T88 Injury, poisoning and certain other consequences of external causes | CPT/HCPCS: G0463 ==

== ENCOUNTER 2023-03-13 03:06 | Day surgery (SDC) | payer OTHER | END 2023-03-13 22:54 | disposition home or self-care (01) | LOC: WOUND 03:06 | DX: S00-T88 Injury, poisoning and certain other consequences of external causes (principal); L97.522 Non-pressure chronic ulcer of other part of left foot with fat layer exposed; L03.115 Cellulitis of right lower limb; S81.801D Unspecified open wound, right lower leg, subsequent encounter; X58.XXXD Exposure to other specified factors, subsequent encounter | CPT/HCPCS: G0463 ==

== ENCOUNTER 2023-04-15 00:51 | Day surgery (SDC) | payer OTHER ==
[2023-04-15] MEDS ORDERED: Lidocaine HCl 4% Cream 5 GM ONE (11:03)
== END 2023-04-15 23:21 | disposition home or self-care (01) ==
LOC: WOUND 00:51
DX: L97.522 Non-pressure chronic ulcer of other part of left foot with fat layer exposed (principal); S91.001D Unspecified open wound, right ankle, subsequent encounter; L03.115 Cellulitis of right lower limb; S81.801D Unspecified open wound, right lower leg, subsequent encounter; S00-T88 Injury, poisoning and certain other consequences of external causes; X58.XXXD Exposure to other specified factors, subsequent encounter
CPT/HCPCS: A9270; G0463

== ENCOUNTER 2023-04-22 00:09 | Day surgery (SDC) | payer OTHER | END 2023-04-22 22:35 | disposition home or self-care (01) | LOC: WOUND 00:09 | DX: L97.312 Non-pressure chronic ulcer of right ankle with fat layer exposed (principal); L97.529 Non-pressure chronic ulcer of other part of left foot with unspecified severity; S81.801D Unspecified open wound, right lower leg, subsequent encounter; S00-T88 Injury, poisoning and certain other consequences of external causes; L03.115 Cellulitis of right lower limb | CPT/HCPCS: G0463 ==

== ENCOUNTER 2023-04-29 05:32 | Day surgery (SDC) | payer OTHER | END 2023-04-29 22:52 | disposition home or self-care (01) | LOC: WOUND 05:32 | DX: L97.522 Non-pressure chronic ulcer of other part of left foot with fat layer exposed (principal); L03.115 Cellulitis of right lower limb; S81.801D Unspecified open wound, right lower leg, subsequent encounter; S00-T88 Injury, poisoning and certain other consequences of external causes; X58.XXXD Exposure to other specified factors, subsequent encounter | CPT/HCPCS: G0463 ==

== ENCOUNTER 2023-05-06 01:50 | Day surgery (SDC) | payer OTHER | END 2023-05-06 22:49 | disposition home or self-care (01) | LOC: WOUND 01:50 | DX: L97.529 Non-pressure chronic ulcer of other part of left foot with unspecified severity (principal); S99.911D Unspecified injury of right ankle, subsequent encounter; S81.801D Unspecified open wound, right lower leg, subsequent encounter; L03.115 Cellulitis of right lower limb; X58.XXXD Exposure to other specified factors, subsequent encounter | CPT/HCPCS: G0463 ==

== ENCOUNTER 2023-06-17 02:26 | Day surgery (SDC) | payer OTHER ==
[~2023-06-17 02:26] MED LIST changes: +DELTASONE20 MG PO; +Norco 5-325 Ta1 EACH PO; +OXYC5 PO
[2023-06-17] MEDS ORDERED: Lidocaine HCl 4% Cream 5 GM ONE ×2 (14:13→14:33)
== END 2023-06-17 23:20 | disposition home or self-care (01) ==
LOC: WOUND 02:26
DX: L97.522 Non-pressure chronic ulcer of other part of left foot with fat layer exposed (principal); L97.314 Non-pressure chronic ulcer of right ankle with necrosis of bone; S80.822A Blister (nonthermal), left lower leg, initial encounter; L03.115 Cellulitis of right lower limb; S81.801D Unspecified open wound, right lower leg, subsequent encounter; S00-T88 Injury, poisoning and certain other consequences of external causes; X58.XXXD Exposure to other specified factors, subsequent encounter
CPT/HCPCS: A9270

== ENCOUNTER → 2023-06-24 | Outpatient (CLI) | payer OTHER | LOC: LAB 07:30 → LAB SHORT 07:30 | DX: L97.319 Non-pressure chronic ulcer of right ankle with unspecified severity (principal) | CPT/HCPCS: 88305 ==

== ENCOUNTER → 2023-07-01 | Outpatient (CLI) | payer OTHER | END | disposition home or self-care (01) | LOC: LAB 15:35 → LAB SHORT 15:35 | DX: L13.9 Bullous disorder, unspecified (principal) | CPT/HCPCS: 87070; 87205 ==

== ENCOUNTER 2023-07-02 04:37 | Day surgery (SDC) | payer OTHER ==
[2023-07-02] MEDS ORDERED: Lidocaine HCl 4% Cream 5 GM ONE (08:17)
== END 2023-07-02 22:50 | disposition home or self-care (01) ==
LOC: WOUND 04:37
DX: L97.312 Non-pressure chronic ulcer of right ankle with fat layer exposed (principal); S81.801D Unspecified open wound, right lower leg, subsequent encounter; S81.802D Unspecified open wound, left lower leg, subsequent encounter; S00-T88 Injury, poisoning and certain other consequences of external causes; X58.XXXD Exposure to other specified factors, subsequent encounter; L03.115 Cellulitis of right lower limb
CPT/HCPCS: A9270; G0463

== ENCOUNTER 2023-07-13 00:08 | Day surgery (SDC) | payer OTHER | END 2023-07-13 22:38 | disposition home or self-care (01) | LOC: WOUND 00:08 | DX: L03.115 Cellulitis of right lower limb (principal); S81.801D Unspecified open wound, right lower leg, subsequent encounter; S00-T88 Injury, poisoning and certain other consequences of external causes; Z86.14 Personal history of Methicillin resistant Staphylococcus aureus infection | CPT/HCPCS: A6213; G0463 ==

== ENCOUNTER 2023-07-20 04:06 | Day surgery (SDC) | payer OTHER | END 2023-07-20 22:45 | disposition home or self-care (01) | LOC: WOUND 04:06 | DX: L97.312 Non-pressure chronic ulcer of right ankle with fat layer exposed (principal); S81.801D Unspecified open wound, right lower leg, subsequent encounter; S00-T88 Injury, poisoning and certain other consequences of external causes; X58.XXXD Exposure to other specified factors, subsequent encounter; L03.115 Cellulitis of right lower limb ==

== ENCOUNTER 2023-09-03 03:08 | Day surgery (SDC) | payer OTHER ==
[~2023-09-03 03:08] MED LIST changes: +DAPS100 PO; +LEVFLO500 PO
[2023-09-03] MEDS ORDERED: Lidocaine HCl 4% Cream 5 GM ONE ×2 (08:55)
== END 2023-09-03 22:44 | disposition home or self-care (01) ==
LOC: WOUND 03:08
DX: L97.312 Non-pressure chronic ulcer of right ankle with fat layer exposed (principal); S81.802A Unspecified open wound, left lower leg, initial encounter; S81.801A Unspecified open wound, right lower leg, initial encounter; S91.103A Unspecified open wound of unspecified great toe without damage to nail, initial encounter; X58.XXXA Exposure to other specified factors, initial encounter; L03.115 Cellulitis of right lower limb
CPT/HCPCS: A6213; A9270

== ENCOUNTER 2023-09-24 02:37 | Day surgery (SDC) | payer OTHER | END 2023-09-24 22:48 | disposition home or self-care (01) | LOC: WOUND 02:37 | DX: L97.312 Non-pressure chronic ulcer of right ankle with fat layer exposed (principal); L97.322 Non-pressure chronic ulcer of left ankle with fat layer exposed; L97.512 Non-pressure chronic ulcer of other part of right foot with fat layer exposed; L97.522 Non-pressure chronic ulcer of other part of left foot with fat layer exposed; I73.9 Peripheral vascular disease, unspecified; F17.200 Nicotine dependence, unspecified, uncomplicated | CPT/HCPCS: 99406; G0463 ==

== ENCOUNTER 2023-10-06 01:53 | Day surgery (SDC) | payer OTHER | END 2023-10-06 23:12 | disposition home or self-care (01) | LOC: WOUND 01:53 | DX: L97.312 Non-pressure chronic ulcer of right ankle with fat layer exposed (principal); L97.522 Non-pressure chronic ulcer of other part of left foot with fat layer exposed; L97.512 Non-pressure chronic ulcer of other part of right foot with fat layer exposed; I73.9 Peripheral vascular disease, unspecified; F17.200 Nicotine dependence, unspecified, uncomplicated | CPT/HCPCS: G0463 ==

== ENCOUNTER 2023-10-27 03:48 | Day surgery (SDC) | payer OTHER | END 2023-10-27 23:13 | disposition home or self-care (01) | LOC: WOUND 03:48 | DX: L97.312 Non-pressure chronic ulcer of right ankle with fat layer exposed (principal); L97.522 Non-pressure chronic ulcer of other part of left foot with fat layer exposed; L97.512 Non-pressure chronic ulcer of other part of right foot with fat layer exposed; L97.322 Non-pressure chronic ulcer of left ankle with fat layer exposed; I73.9 Peripheral vascular disease, unspecified; L03.115 Cellulitis of right lower limb; Z72.0 Tobacco use | CPT/HCPCS: G0463 ==

== ENCOUNTER 2023-12-08 02:03 | Day surgery (SDC) | payer OTHER | END 2023-12-08 23:02 | disposition home or self-care (01) | LOC: WOUND 02:03 | DX: L97.512 Non-pressure chronic ulcer of other part of right foot with fat layer exposed (principal); L97.312 Non-pressure chronic ulcer of right ankle with fat layer exposed; L03.115 Cellulitis of right lower limb; Z72.0 Tobacco use; I73.9 Peripheral vascular disease, unspecified | CPT/HCPCS: G0463 ==

== ENCOUNTER 2023-12-15 03:18 | Day surgery (SDC) | payer OTHER ==
[2023-12-15] MEDS ORDERED: Lidocaine HCl 4% Cream 5 GM ONE (08:29)
== END 2023-12-15 23:00 ==
LOC: WOUND 03:18
DX: L97.312 Non-pressure chronic ulcer of right ankle with fat layer exposed (principal); L97.512 Non-pressure chronic ulcer of other part of right foot with fat layer exposed; L03.115 Cellulitis of right lower limb; I73.9 Peripheral vascular disease, unspecified; Z72.0 Tobacco use
CPT/HCPCS: A9270

== ENCOUNTER 2023-12-22 02:22 | Day surgery (SDC) | payer OTHER | END 2023-12-22 23:00 | disposition home or self-care (01) | LOC: WOUND 02:22 | DX: L97.312 Non-pressure chronic ulcer of right ankle with fat layer exposed (principal); L97.812 Non-pressure chronic ulcer of other part of right lower leg with fat layer exposed; L97.512 Non-pressure chronic ulcer of other part of right foot with fat layer exposed; L03.115 Cellulitis of right lower limb; Z72.0 Tobacco use | CPT/HCPCS: G0463 ==

== ENCOUNTER 2024-01-12 01:30 | Day surgery (SDC) | payer OTHER ==
[2024-01-12] MEDS ORDERED: Lidocaine HCl 4% Cream 5 GM ONE (08:52)
== END 2024-01-12 23:00 | disposition home or self-care (01) ==
LOC: WOUND 01:30
DX: L02.416 Cutaneous abscess of left lower limb (principal); I73.9 Peripheral vascular disease, unspecified; L97.512 Non-pressure chronic ulcer of other part of right foot with fat layer exposed; J44.9 Chronic obstructive pulmonary disease, unspecified; Z72.0 Tobacco use
CPT/HCPCS: 87070; 87077; 87186; 87205; A9270

== ENCOUNTER → 2024-05-26 | Outpatient (CLI) | payer OTHER | LOC: LAB 13:29 → LAB SHORT 13:29 | DX: L03.113 Cellulitis of right upper limb (principal) | CPT/HCPCS: 87070; 87075; 87077; 87147; 87186; 87205 ==

== ENCOUNTER → 2024-08-10 | Outpatient (CLI) | payer OTHER | LOC: LAB 17:23 → LAB SHORT 17:23 | DX: L97.919 Non-pressure chronic ulcer of unspecified part of right lower leg with unspecified severity (principal) | CPT/HCPCS: 87070; 87075; 87077; 87147; 87186; 87205 ==

== ENCOUNTER 2025-02-11 14:57 | Inpatient (IN) | payer OTHER ==
[~2025-02-11] VITALS: Ht 185.4 cm; Wt 110.4 kg
[2025-02-11] MEDS ORDERED: Ondansetron HCl 2 MG / ML 2ML Vial IV ONE (15:20)
[2025-02-11] MEDS ORDERED: Ketorolac Tromethamine 15mg Vial IV ONE (15:20)
[2025-02-11] MEDS ORDERED: FentaNYL Citrate 50 MCG/ML 2 ML Injection IV ONE ×2 (15:20→17:20)
[2025-02-11] MEDS ORDERED: NS 1,000 ML IV SCH (15:25)
[2025-02-11] MEDS ORDERED: Ipratropium/Albuterol SulF 2.5-0.5MG/3 ML Amp INH ONE (15:25)
[2025-02-11 15:37] LABS: Hematocrit 41.2 % (37.0-53.0); Hemoglobin 13.7 g/dL (13.5-17.5); Mean Corpuscular HGB Conc 33.3 g/dL (31.5-36.5); Mean Corpuscular Volume 94 fL (80-100); NRBC ABSOLUTE 0.00 K/mm3 (0.00-0.02); NRBC Auto 0.0 /100 WBC (0.0-0.2); Platelet Count 289 K/mm3 (150-400); RDW Coefficient Variation 12.5 % (11.7-14.2); RDW Standard Deviation 43.5 fL (35.1-46.3)
[2025-02-11] MEDS ORDERED: Ipratropium Bromide INH 0.02% 0.5 mg/2.5ML Vial INH ONE ×2 (15:45→17:35)
[2025-02-11 15:54] LABS: Alanine Aminotransfer (ALT/SGP 19.0 U/L (12-78); Albumin, Blood 3.2 g/dL (3.4-5.0); Albumin/Globulin Ratio 0.7 (0.8-1.8); Anion Gap 10.0 mmol/L (3-11); Aspartate Aminotrans (AST/SGOT 27.0 U/L (12-37); Bilirubin, Total 2.0 mg/dL (0.1-1.0); Blood Urea Nitrogen 17.0 mg/dL (8-24); CO2, Blood 23.0 mmol/L (21-32); Calcium, Blood 8.4 mg/dL (8.5-10.1); Chloride, Blood 103.0 mmol/L (98-108); Creatinine, Blood 1.17 mg/dL (0.60-1.20); Globulin, Blood 4.6 g/dL (2.2-4.0); Glucose, Blood 107.0 mg/dL (70-99); Magnesium, Blood 1.7 mg/dL (1.6-2.4); Phosphorus, Blood 1.4 mg/dL (2.5-4.9); Potassium, Blood 4.4 mmol/L (3.5-5.5); Sodium, Blood 132.0 mmol/L (136-145); Total Protein, Blood 7.8 g/dL (6.4-8.2)
[2025-02-11 16:10] LABS: BAND PERCENT MAN 4 % (0-8); BASOPHILS ABSOLUTE MAN 0.00 K/mm3 (0.00-0.23); BASOPHILS PERCENT MAN 0 % (0-2); EOSINOPHILS ABSOLUTE MAN 0.00 K/mm3 (0.00-0.68); EOSINOPHILS PERCENT MAN 0 % (0-6); LYMPHOCYTES ABSOLUTE MAN 1.09 K/mm3 (0.84-5.20); LYMPHOCYTES PERCENT MAN 4 % (21-46); MONOCYTES ABSOLUTE MAN 1.37 K/mm3 (0.16-1.47); MONOCYTES PERCENT MAN 5 % (4-13); NEUTROPHILS ABSOLUTE MAN 24.93 K/mm3 (1.96-9.15); SEG NEUTROPHILS PERCENT MAN 87 % (41-73)
[2025-02-11 16:40] LABS: pH Blood Venous 7.45 (7.34-7.37)
[2025-02-11] MEDS ORDERED: CefTRIAXone Sodium 2,000 MG in NS 100 ML IV ONE (17:15)
[2025-02-11] MEDS ORDERED: Naloxone HCl 0.4MG / ML 1ML Vial IV PRN (18:55)
[2025-02-11] MEDS ORDERED: Ondansetron HCl 2 MG / ML 2ML Vial IV PRN (18:55)
[2025-02-11] MEDS ORDERED: FentaNYL Citrate 50 MCG/ML 2 ML Injection IV PRN ×2 (19:00→22:25)
[2025-02-11] MEDS ORDERED: Ipratropium/Albuterol SulF 2.5-0.5MG/3 ML Amp INH SCH (19:00)
[2025-02-11] MEDS ORDERED: FLU VACC TS2025-26(6MOS UP)/PF 45 MCG/0.5 ML SYRINGE IM SCH (19:00)
[2025-02-11] MEDS ORDERED: Sodium Phosphate 20 MM in Dextrose 5% 500 ML IV STA (19:00)
[2025-02-11] MEDS ORDERED: Ketorolac Tromethamine 15mg Vial IV PRN (19:05)
[2025-02-11 20:02] LABS: pH Blood Venous 7.42 (7.34-7.37)
[2025-02-11] MEDS ORDERED: Lactobacil 2-S.Thermo-Bifido 1 1 Cap PO SCH (21:00)
[2025-02-11 21:05] VITALS: BP 104/64
[2025-02-11] MEDS ORDERED: IBUP800 PO (21:26)
[2025-02-11] MEDS ORDERED: ALBU90OI INH (21:27)
--- NOTE | 2025-02-11 21:30 | NUR ---
TRANSFER NOTE RECEIVED REPORT FROM ED RN AT 2025. PATIENT ARRIVED TO UNIT VIA [facility] AT 2105. PATIENT WALKED FROM [facility] TO BED, TOLERATED WELL. PATIENT A/O X 4, SPEAKING IN COMPLETE SENTENCES AND IS ABLE TO MAKE NEEDS KNOWN. AFLUTTER 60-70s, SBP 120s. DENIES CHEST PAIN OR PRESSURE. SATS >92% ON RA, DYSPNEA WITH EXERTION. PATIENT IS 1PA TO BATHROOM, EDUCATED ELECTRIC MOTOR MECHANIC LIGHT USE. PT REPORTS LAST BM THIS MORNING, NO DIFFICULTY WITH URINATION AT BASELINE. EXCORATIONS SCATTERED T/O UPPER/LOWER EXTREMITIES AND BUTTOCKS, PATIENT REPORTS ONGOING ISSUE WITH ITCHING/SCRATCHING OF THE AFFECTED AREAS. BACK PAIN IS CONSTANT, WORSE WITH MOVEMENT AND DEEP BREATHING. CURRENT RATING OF 8/10, TREATED PER EMAR. PATIENT RESTING COMFORTABLY IN ROOM. BED LOCKED IN LOWEST POSITION, CALL LIGHT WITHIN REACH.
[2025-02-11 23:37] LABS: Influenza A, PCR NEGATIVE (NEGATIVE); Influenza B, PCR NEGATIVE (NEGATIVE); Resp Syncytial Virus, PCR NEGATIVE (NEGATIVE); SARS-Cov-2 (COVID-19) PCR, MMC NEGATIVE (NEGATIVE)
[2025-02-12] VITALS (9 sets, daily range): BP systolic 89–115; BP diastolic 49–80
[2025-02-12 04:00] LABS: BASOPHILS ABSOLUTE AUTO 0.07 K/mm3 (0.00-0.23); BASOPHILS PERCENT AUTO 0 % (0-2); EOSINOPHILS ABSOLUTE AUTO 0.00 K/mm3 (0.00-0.68); EOSINOPHILS PERCENT AUTO 0 % (0-6); Hematocrit 37.9 % (37.0-53.0); Hemoglobin 12.8 g/dL (13.5-17.5); IMMATURE GRAN ABSOLUTE AUTO 0.62 K/mm3 (0.00-0.10); IMMATURE GRAN PERCENT AUTO 2 % (0-1); LYMPHOCYTES ABSOLUTE AUTO 1.10 K/mm3 (0.84-5.20); LYMPHOCYTES PERCENT AUTO 4 % (21-46); MONOCYTES ABSOLUTE AUTO 0.56 K/mm3 (0.16-1.47); MONOCYTES PERCENT AUTO 2 % (4-13); Mean Corpuscular HGB Conc 33.8 g/dL (31.5-36.5); Mean Corpuscular Volume 95 fL (80-100); NEUTROPHILS ABSOLUTE AUTO 27.42 K/mm3 (1.96-9.15); NEUTROPHILS PERCENT AUTO 92 % (41-73); NRBC ABSOLUTE 0.00 K/mm3 (0.00-0.02); NRBC Auto 0.0 /100 WBC (0.0-0.2); Platelet Count 254 K/mm3 (150-400); RDW Coefficient Variation 12.8 % (11.7-14.2); RDW Standard Deviation 44.7 fL (35.1-46.3)
[2025-02-12 04:35] LABS: Alanine Aminotransfer (ALT/SGP 15.0 U/L (12-78); Albumin, Blood 2.7 g/dL (3.4-5.0); Albumin/Globulin Ratio 0.6 (0.8-1.8); Anion Gap 11.0 mmol/L (3-11); Aspartate Aminotrans (AST/SGOT 15.0 U/L (12-37); Bilirubin, Total 1.0 mg/dL (0.1-1.0); Blood Urea Nitrogen 23.0 mg/dL (8-24); CO2, Blood 21.0 mmol/L (21-32); Calcium, Blood 8.3 mg/dL (8.5-10.1); Chloride, Blood 107.0 mmol/L (98-108); Creatinine, Blood 1.11 mg/dL (0.60-1.20); Globulin, Blood 4.5 g/dL (2.2-4.0); Glucose, Blood 160.0 mg/dL (70-99); Magnesium, Blood 2.2 mg/dL (1.6-2.4); Phosphorus, Blood 2.5 mg/dL (2.5-4.9); Potassium, Blood 4.5 mmol/L (3.5-5.5); Sodium, Blood 134.0 mmol/L (136-145); Total Protein, Blood 7.2 g/dL (6.4-8.2)
--- NOTE | 2025-02-12 05:37 | NUR ---
SHIFT SUMMARY SEE PREVIOUS NOTE. PATIENT REMAINS A/O X 4, USES CALL LIGHT APPROPRIATELY AND IS COOPERATIVE WITH CARE. AFLUTTER 50-60s, BP SOFT BUT STABLE. PATIENT DESATS TO MID 80s WHILE SLEEPING, MAINTAINING >92% ON 1-2L NC. PATIENT AMBULATES TO BATHROOM WITH 1PA, TOLERATES WELL. BACK PAIN IS WELL CONTROLLED WITH MEDS PER EMAR. DENIES SOB, DIZZINESS, OR LIGHTHEADNESS WHEN AMBULATING. PATIENT RESTING COMFORTABLY IN ROOM. BED LOCKED IN LOWEST POSITION, CALL LIGHT WITHIN REACH
[2025-02-12] MEDS ORDERED: Enoxaparin 40 MG/0.4 ML SYR SC SCH (09:00)
[2025-02-12] MEDS ORDERED: CefTRIAXone Sodium 2,000 MG in NS 100 ML IV SCH (09:00)
[2025-02-12] MEDS ORDERED: NS 1,000 ML IV SCH (09:25)
--- NOTE | 2025-02-12 16:56 | NUR ---
ASSUMED CARE 1530: PREVIOUS RN SHIFT ASSESSMENT REVIEWED AND AGREED WITH UNLESS OTHERWISE CHARTED ON THE INDIVIDUAL SYSTEM REASSESSMENT. PT C/O LEFT SIDED BACK PAIN AND WAS MEDICATED FOR THAT, SEE EMAR. PT TOLERATING IV FLUIDS WELL. PT HAS HAD GOOD URINARY OUTPUT SINCE THIS RN ASSUMED CARE.
[2025-02-12] MEDS ORDERED: CefTRIAXone Sodium 1,000 MG in NS 100 ML IV SCH (18:00)
[2025-02-13 03:47] VITALS: BP 112/73
[2025-02-13 04:09] LABS: BASOPHILS ABSOLUTE AUTO 0.03 K/mm3 (0.00-0.23); BASOPHILS PERCENT AUTO 0 % (0-2); EOSINOPHILS ABSOLUTE AUTO 0.03 K/mm3 (0.00-0.68); EOSINOPHILS PERCENT AUTO 0 % (0-6); Hematocrit 34.8 % (37.0-53.0); Hemoglobin 11.4 g/dL (13.5-17.5); IMMATURE GRAN ABSOLUTE AUTO 0.11 K/mm3 (0.00-0.10); IMMATURE GRAN PERCENT AUTO 1 % (0-1); LYMPHOCYTES ABSOLUTE AUTO 2.65 K/mm3 (0.84-5.20); LYMPHOCYTES PERCENT AUTO 14 % (21-46); MONOCYTES ABSOLUTE AUTO 0.66 K/mm3 (0.16-1.47); MONOCYTES PERCENT AUTO 3 % (4-13); Mean Corpuscular HGB Conc 32.8 g/dL (31.5-36.5); Mean Corpuscular Volume 95 fL (80-100); NEUTROPHILS ABSOLUTE AUTO 15.97 K/mm3 (1.96-9.15); NEUTROPHILS PERCENT AUTO 82 % (41-73); NRBC ABSOLUTE 0.00 K/mm3 (0.00-0.02); NRBC Auto 0.0 /100 WBC (0.0-0.2); Platelet Count 217 K/mm3 (150-400); RDW Coefficient Variation 13.1 % (11.7-14.2); RDW Standard Deviation 46.1 fL (35.1-46.3)
[2025-02-13 04:35] LABS: Alanine Aminotransfer (ALT/SGP 14.0 U/L (12-78); Albumin, Blood 2.4 g/dL (3.4-5.0); Albumin/Globulin Ratio 0.6 (0.8-1.8); Anion Gap 7.0 mmol/L (3-11); Aspartate Aminotrans (AST/SGOT 16.0 U/L (12-37); Bilirubin, Total 0.4 mg/dL (0.1-1.0); Blood Urea Nitrogen 27.0 mg/dL (8-24); CO2, Blood 23.0 mmol/L (21-32); Calcium, Blood 8.4 mg/dL (8.5-10.1); Chloride, Blood 112.0 mmol/L (98-108); Creatinine, Blood 0.99 mg/dL (0.60-1.20); Globulin, Blood 4.3 g/dL (2.2-4.0); Glucose, Blood 94.0 mg/dL (70-99); Potassium, Blood 3.9 mmol/L (3.5-5.5); Sodium, Blood 138.0 mmol/L (136-145); Total Protein, Blood 6.7 g/dL (6.4-8.2)
--- NOTE | 2025-02-13 05:31 | NUR ---
ASSUMED CARE OF PT AT 1900. PT AXOX4 AND ABLE TO USE CALL LIGHT APPROPRIATELY. PT REMAINS ON RA WITH 02>92%. PT HAS A NAGGING COUGH AND DOES GET SHORT OF BREATH AFTER HAVING A COUGHING FIT. ABLE TO TO AMBULATE TO THE BATHROOM WITH MINIMAL ASSISTANCE. PRN OXY AND TORODOL ADMINISTERED NEEDED FOR BACK PAIN. BED IN LOWEST POSITION AND CALL LIGHT WITHIN REACH.
[2025-02-13 08:33] VITALS: BP 101/70
[2025-02-13] MEDS ORDERED: CefTRIAXone Sodium 1,000 MG in NS 100 ML IV SCH (09:00)
[2025-02-13 16:48] VITALS: BP 112/75
--- NOTE | 2025-02-13 19:22 | NUR ---
PT STABLE THROUGHOUT SHIFT. PT ON ROOM AIR, AOX4, INDEPENDENT IN ROOM. TELE D/C'D. PT SALINE LOCKED EXCEPT IV ABX. PT TOLERATING IV ABX WELL. PAIN WELL CONTROLLED WITH TYLENOL AND TORADOL. PT PAIN LOCATED PRIMARY LEFT MID BACK.
[2025-02-13 19:43] VITALS: BP 121/87
[2025-02-14 04:12] VITALS: BP 116/77
--- NOTE | 2025-02-14 04:26 | NUR ---
SHIFT SUMMARY PT IS A&OX4 ABLE TO VERBALIZE NEEDS AND CALLS APPROPRIATELY . VSS ON RA O2 SATS >95%. REMAINS ON A CONTINUOUS PULSE OXIMETER. HE COMPLETED AN OVERNIGHT PULSE OX. HES A MEDICAL PATIENT AND NOT ON TELEMETRY. TOLERATES A HEART HEALTHY DIET. ABLE TO TAKE MEDS WHOLE IN WATER. DID C/O BACK PAIN MEDICATED WITH TYLENOL, TORADOL AND OXY WITH GOOD PAIN RELIEF. GETS UP AD GURJIT AND AMBULATES TO THE BATHROOM. HAD A BM YESTERDAY. BED IN LOWEST POSITION,, CALLS APPROPRIATELY AND IS ABLE TO ADVOCATE NEEDS EFFECTIVELY. REPORT TO ONCOMING NURSE.
[2025-02-14 08:44] LABS: BASOPHILS ABSOLUTE AUTO 0.04 K/mm3 (0.00-0.23); BASOPHILS PERCENT AUTO 0 % (0-2); EOSINOPHILS ABSOLUTE AUTO 0.18 K/mm3 (0.00-0.68); EOSINOPHILS PERCENT AUTO 2 % (0-6); Hematocrit 37.1 % (37.0-53.0); Hemoglobin 12.1 g/dL (13.5-17.5); IMMATURE GRAN ABSOLUTE AUTO 0.03 K/mm3 (0.00-0.10); IMMATURE GRAN PERCENT AUTO 0 % (0-1); LYMPHOCYTES ABSOLUTE AUTO 2.11 K/mm3 (0.84-5.20); LYMPHOCYTES PERCENT AUTO 23 % (21-46); MONOCYTES ABSOLUTE AUTO 0.34 K/mm3 (0.16-1.47); MONOCYTES PERCENT AUTO 4 % (4-13); Mean Corpuscular HGB Conc 32.6 g/dL (31.5-36.5); Mean Corpuscular Volume 97 fL (80-100); NEUTROPHILS ABSOLUTE AUTO 6.35 K/mm3 (1.96-9.15); NEUTROPHILS PERCENT AUTO 70 % (41-73); NRBC ABSOLUTE 0.00 K/mm3 (0.00-0.02); NRBC Auto 0.0 /100 WBC (0.0-0.2); Platelet Count 247 K/mm3 (150-400); RDW Coefficient Variation 13.2 % (11.7-14.2); RDW Standard Deviation 47.2 fL (35.1-46.3)
--- NOTE | 2025-02-14 10:06 | NUR ---
ASSUMED CARE THIS RN ASSUMED CARE OF PATIENT AT 0700 WITH PRECEPTOR THELMA WADDELL. PATIENT IS RESTING DURING BSSR BUT OPENS EYES AND GREEN X4 INDEPENDENTLY. HE RESPONDS TO NURSES APPROPRIATELY. HIS SPO2 IS 98% ON RA. BED IN LOWEST POSITION, CALL LIGHT IN REACH.
[2025-02-14] MEDS ORDERED: ACET325 PO (10:34)
[2025-02-14] MEDS ORDERED: FAMO20 PO (10:34)
[2025-02-14] MEDS ORDERED: PROBIOTIC1 EA13 PO (10:35)
[2025-02-14] MEDS ORDERED: LEVO750 PO (10:40)
--- NOTE | 2025-02-14 11:18 | NUR ---
DISCHARGE PATIENT PROVIDED WITH INFORMATION ABOUT DISCHARGE AND INSTRUCTIONS HOW TO CONTINUE ABX AT HOME. HE IS AGREEABLE. PATIENT DRESSED SELF INDEPENDENTLY AND GATHERED ALL PERSONAL BELONGINGS. NADIRA MATTHEWS, FROM CASE MANAGEMENT CALLED [facility] FOR PATIENT TO GO TO [place] WHERE HE CURRENTLY LIVES. PATIENT AMBULATED OUT OF UNIT WITH STEADY GAIT INDEPENDENTLY.
== END 2025-02-14 11:25 | disposition home or self-care (01) | DRG 871 ==
LOC: ER 14:57 → ERHOLD 18:52 → PCU 18:52
PROVIDERS: Internal Medicine; Student in an Organized Health Care Education/Training Program; ADMIT Student in an Organized Health Care Education/Training Program
DX: A40.3 Sepsis due to Streptococcus pneumoniae (principal); J18.9 Pneumonia, unspecified organism; J44.0 Chronic obstructive pulmonary disease with (acute) lower respiratory infection; J44.1 Chronic obstructive pulmonary disease with (acute) exacerbation; I48.92 Unspecified atrial flutter; J84.9 Interstitial pulmonary disease, unspecified; Z66 Do not resuscitate; F17.210 Nicotine dependence, cigarettes, uncomplicated; R79.1 Abnormal coagulation profile; E83.39 Other disorders of phosphorus metabolism; R79.89 Other specified abnormal findings of blood chemistry; Z86.19 Personal history of other infectious and parasitic diseases; Z79.891 Long term (current) use of opiate analgesic
CPT/HCPCS: 36415; 71260; 74177; 80053; 82803; 83605; 83690; 83735; 83880; 84100; 84145; 84484; 85025; 85379; 87040; 87077; 87184; 87449; 87637; 93005; 93010; 94640; 94664; 94762; 96361-59; 96365-59; 96368; 96375-59; 96376-59; 99285-25; A9270; J0456; J0696; J1650; J1885; J2405; J2919; J3010; J7030; J7050; J7060; Q9967

== ENCOUNTER → 2025-02-21 | Outpatient (CLI) | payer OTHER ==
[~2025-02-21] MED LIST changes: +ACET325 PO; +LEVO750 PO; +PROBIOTIC1 EA13 PO
[2025-02-21 17:56] LABS: BASOPHILS ABSOLUTE AUTO 0.10 K/mm3 (0.00-0.23); BASOPHILS PERCENT AUTO 1 % (0-2); EOSINOPHILS ABSOLUTE AUTO 0.28 K/mm3 (0.00-0.68); EOSINOPHILS PERCENT AUTO 2 % (0-6); Hematocrit 42.3 % (37.0-53.0); Hemoglobin 14.0 g/dL (13.5-17.5); IMMATURE GRAN ABSOLUTE AUTO 0.04 K/mm3 (0.00-0.10); IMMATURE GRAN PERCENT AUTO 0 % (0-1); LYMPHOCYTES ABSOLUTE AUTO 2.69 K/mm3 (0.84-5.20); LYMPHOCYTES PERCENT AUTO 23 % (21-46); MONOCYTES ABSOLUTE AUTO 0.63 K/mm3 (0.16-1.47); MONOCYTES PERCENT AUTO 6 % (4-13); Mean Corpuscular HGB Conc 33.1 g/dL (31.5-36.5); Mean Corpuscular Volume 92 fL (80-100); NEUTROPHILS ABSOLUTE AUTO 7.80 K/mm3 (1.96-9.15); NEUTROPHILS PERCENT AUTO 68 % (41-73); NRBC ABSOLUTE 0.00 K/mm3 (0.00-0.02); NRBC Auto 0.0 /100 WBC (0.0-0.2); Platelet Count 430 K/mm3 (150-400); RDW Coefficient Variation 12.2 % (11.7-14.2); RDW Standard Deviation 41.7 fL (35.1-46.3)
[2025-02-21 19:27] LABS: Alanine Aminotransfer (ALT/SGP 22.0 U/L (12-78); Albumin, Blood 3.4 g/dL (3.4-5.0); Albumin/Globulin Ratio 0.7 (0.8-1.8); Anion Gap 9.0 mmol/L (3-11); Aspartate Aminotrans (AST/SGOT 16.0 U/L (12-37); Bilirubin, Total 0.6 mg/dL (0.1-1.0); Blood Urea Nitrogen 14.0 mg/dL (8-24); CO2, Blood 24.0 mmol/L (21-32); Calcium, Blood 9.4 mg/dL (8.5-10.1); Chloride, Blood 106.0 mmol/L (98-108); Creatinine, Blood 1.0 mg/dL (0.60-1.20); Globulin, Blood 5.1 g/dL (2.2-4.0); Glucose, Blood 101.0 mg/dL (70-99); Potassium, Blood 3.9 mmol/L (3.5-5.5); Sodium, Blood 135.0 mmol/L (136-145); Total Protein, Blood 8.5 g/dL (6.4-8.2)
== END ==
LOC: LAB SHORT 16:11 → LAB 16:11
PROVIDERS: Nurse Practitioner Family
DX: J18.9 Pneumonia, unspecified organism (principal)
CPT/HCPCS: 80053; 85025